=== PATIENT | female | born 1985 | race Two or more races ===

== ENCOUNTER 2018-02-24 22:31 | Emergency (ER) | payer SELFPAY ==
[2018-02-24] MEDS ORDERED: OXYCODONE-ACETAMINOPHEN 5-325 MG TABLET PO ONE (23:32)
--- NOTE | 2018-02-24 23:36 | ER Document Report ---
HPI - HPI Patient complains to provider of: Left foot pain Onset: Other - 3 weeks Onset/Duration: Persistent Quality of pain: Sharp Pain Level: 5 Context: Patient presents complaining of left foot pain that started about 2-3 weeks ago and then resolved. Patient states the pain returned 2 days ago, but is more severe this time. Patient denies any injury. Patient complains of pain along the plantar surface of her left foot. 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 Associated Symptoms: Other - Left foot pain. denies: Fever Exacerbated by: Standing, Movement, Walking Relieved by: Denies Similar symptoms previously: Yes Recently seen / treated by doctor: No - ROS ROS below otherwise negative: Yes Systems Reviewed and Negative: Yes All other systems reviewed and negative - CONSTITUTIONAL Constitutional: DENIES: Fever - NEURO Neurology: DENIES: Weakness - MUSCULOSKELETAL Musculoskeletal: REPORTS: Extremity pain - DERM Skin Color: Normal Skin Problems: None Past Medical History - General Information source: Patient - Social History Smoking Status: Current Every Day Smoker Smoking Education Provided: Yes Frequency of alcohol use: None Drug Abuse: None Occupation: [employer] Work[employer] Family History: Reviewed & Not Pertinent - Medical History Medical History: Negative Past Surgical History: Reports: Hx Cardiac Catheterization Vertical Provider Document - CONSTITUTIONAL Agree With Documented VS: Yes Exam Limitations: No Limitations General Appearance: WD/WN, No Apparent Distress - INFECTION CONTROL TRAVEL OUTSIDE OF THE [place] IN LAST 30 DAYS: No - HEENT HEENT: Atraumatic, Normocephalic - NECK Neck: Normal Inspection - RESPIRATORY Respiratory: Breath Sounds Normal, No Respiratory Distress - CARDIOVASCULAR Cardiovascular: Regular Rate, Regular Rhythm Pulses: Normal: Dorsalis pedis - BACK Back: Normal Inspection - MUSCULOSKELETAL/EXTREMETIES Musculoskeletal/Extremeties: MAEW, Tender - Left foot tenderness along the plantar fascia, normal skin color and temperature overlying foot - NEURO Level of Consciousness: Awake, Alert, Appropriate Motor/Sensory: No Motor Deficit - DERM Integumentary: Warm, Dry Course - Re-evaluation Re-evalutation: 02/24/18 23:33 Controlled substance database reviewed - Vital Signs Vital signs: Temp Pulse Resp BP Pulse Ox 98.9 F 89 18 119/82 99 02/24/18 22:41 02/24/18 22:41 02/24/18 22:41 02/24/18 22:41 02/24/18 22:41 Discharge - Discharge Clinical Impression: Plantar fasciitis Condition: Stable Disposition: HOME, SELF-CARE Instructions: Anti-Inflammatory Medication ([facility]), Use of Crutches ([facility]), Oral Narcotic Medication ([facility]), Plantar Fasciitis or Heel Spur ([facility]) Additional Instructions: Return immediately for any new or worsening symptoms Followup with your primary care provider, call tomorrow to make a followup appointment Weightbearing as tolerated Follow-up with orthopedic doctor for any continued pain or problems Prescriptions: Naproxen [Naprosyn 250 Nmg Tablet] 1 tab PO BID #14 tablet Oxycodone HCl/Acetaminophen [Percocet 5-325 mg Tablet] 1 tab PO ASDIR PRN #12 tablet PRN Reason: Forms: Smoking Cessation Education, Return to Work Referrals: [facility] [Provider Group] - Follow up as needed [facility] [Provider Group] - Follow up as needed
[2018-02-25 00:07] VITALS: BP 118/62
== END 2018-02-25 00:04 | disposition home or self-care (01) ==
LOC: ER 22:31
DX: M72.2 Plantar fascial fibromatosis (principal); M79.672 Pain in left foot; F17.200 Nicotine dependence, unspecified, uncomplicated
CPT/HCPCS: 99283